=== PATIENT | female | born 1960 | race Caucasian/White ===

== ENCOUNTER 2024-03-25 08:25 | Emergency (ER) | payer OTHER ==
[~2024-03-25] VITALS: Ht 162.6 cm; Wt 69.3 kg
[~2024-03-25 08:25] MED LIST: NO HOME MEDS
[2024-03-25 08:40] VITALS: BP 208/118; PULSE 80; RESP 18; TEMP 97.8; O2SAT 98
[2024-03-25 09:42] LABS: BILIRUBIN,URINE NEGATIVE (Neg); CLARITY,URINE CLEAR (Clear); COLOR,URINE YELLOW (Yellow); GLUCOSE, URINE NEGATIVE (Neg); KETONES,URINE NEGATIVE (Neg); LEUKOCYTE ESTERASE ,URINE NEGATIVE (Neg); NITRITES, URINE NEGATIVE (Neg); OCCULT BLOOD,URINE MODERATE (Neg); PH,URINE 5.5 (4.8-8.0); PROTEIN,URINE NEGATIVE (Neg); UROBILINOGEN,URINE 0.2 E.U/dL (0.2-1.0)
[2024-03-25 09:43] LABS: BASOPHILS % (AUTO) 0.3 % (0-1); EOSINOPHILS # (AUTO) 0.1 X10'3 (0-0.9); EOSINOPHILS % (AUTO) 1.7 % (0-6); HEMOGLOBIN 8.1 g/dl (12.0-16.0); LYMPHOCYTES # (AUTO) 0.9 X10'3 (1.1-4.8); LYMPHOCYTES % (AUTO) 20.1 % (21-51); MEAN CORPUSCULAR HEMOGLOBIN 29.9 PG (27.0-31.0); MEAN CORPUSCULAR HGB CONC 32.5 g/dL (33.0-36.5); MEAN CORPUSCULAR VOLUME 92.1 FL (78-98); MEAN PLATELET VOLUME 7.4 FL (7.4-10.4); MONOCYTES # (AUTO) 0.4 X10'3 (0-0.9); MONOCYTES % (AUTO) 9.8 % (2-12); NEUTROPHILS # (AUTO) 2.9 X10'3 (1.8-7.7); NEUTROPHILS % (AUTO) 68.1 % (42-75); PLATELET COUNT 245 X10'3 (140-440); RED BLOOD COUNT 2.72 X10'6 (4.20-5.60); RED CELL DISTRIBUTION WIDTH 21.6 % (11.5-14.5); WHITE BLOOD COUNT 4.3 X10'3 (4.5-11.0)
[2024-03-25 09:46] LABS: UA COLLECTION TYPE CLN CATCH MIDSTREAM
[2024-03-25 10:14] LABS: ALANINE AMINOTRANSFERASE 15 U/L (12-78); ALBUMIN 2.6 G/DL (3.4-5.0); ALBUMIN/GLOBULIN RATIO 0.4 (1.1-1.5); ALKALINE PHOSPHATASE 40 IU/L (46-116); ANION GAP 6 (8-16); ASPARTATE AMINO TRANSFERASE 12 U/L (10-37); BILIRUBIN,TOTAL 0.2 MG/DL (0.1-1.0); BLOOD UREA NITROGEN 27 MG/DL (7-18); BUN/CREATININE RATIO 20.8 (10.0-20.0); CALCIUM 9.2 MG/DL (8.5-10.1); CHLORIDE 104 MMOL/L (99-107); GLUCOSE 95 MG/DL (70-104); POTASSIUM 3.9 MMOL/L (3.5-5.1); SODIUM 138 MMOL/L (135-145); TOTAL CARBON DIOXIDE 28.5 MMOL/L (24-32); TOTAL PROTEIN 9.9 G/DL (6.4-8.2); eCRCL 37 ML/MIN; eGFR 41 ML/MIN
[2024-03-25] MEDS ORDERED: AMLO2.5T2 PO (10:41)
[2024-03-25] MEDS ORDERED: FURO-150 PO (10:41)
[2024-03-25] MEDS ORDERED: CARV3.12 PO (10:41)
[2024-03-25] MEDS ORDERED: ALBU8HFA PO (10:41)
[2024-03-25 10:45] LABS: WBC,URINE 0-4 /HPF (0-4)
[2024-03-25 10:46] LABS: RBC,URINE NONE SEEN /HPF (0-2)
[2024-03-25 10:47] LABS: BACTERIA,URINE 1+ /HPF (Neg)
[2024-03-25 10:49] LABS: SQUAMOUS EPITHELIAL CELL,UR MANY /LPF (FEW)
[2024-03-25 10:50] LABS: MUCUS STRANDS FEW /LPF (Neg)
== END 2024-03-25 10:46 | disposition home or self-care (01) ==
LOC: ER 08:26
DX: Z76.0 Encounter for issue of repeat prescription (principal); I50.9 Heart failure, unspecified; J44.9 Chronic obstructive pulmonary disease, unspecified; D64.9 Anemia, unspecified
CPT/HCPCS: 36415; 80053; 81001; 85025; 99283